=== PATIENT | female | born 1995 | race Caucasian/White ===

== ENCOUNTER 2021-07-29 12:13 | Inpatient (IN) | payer BC ==
[~2021-07-29] VITALS: Ht 149.9 cm; Wt 29.7 kg
[2021-07-29 12:45] LABS: BASO % 0.4 % (0.0-2.0); EOS # 0.2 K/mm3 (0.0-0.7); EOS % 2.9 % (0-4.0); GRAN # 6.4 K/mm3 (1.4-6.5); GRAN % 77.7 % (42.2-75.2); HEMOGLOBIN 8.7 g/dl (12.5-16.0); LYMPH # 1.1 K/mm3 (1.2-3.4); LYMPH % 13.4 % (20.0-51.0); MEAN CELL VOLUME 96 fl (80.0-100.0); MEAN CORPUSCULAR HEMOGLOBIN 29 pg (27.0-31.0); MEAN CORPUSCULAR HGB CONC 30 g/dl (33.0-37.0); MEAN PLATELET VOLUME 9.6 fl (7.4-10.4); MONO # 0.4 K/mm3 (0.1-0.6); MONO % 5.1 % (1.7-9.3); PLATELET COUNT 373 K/mm3 (130-400); RED BLOOD COUNT 3.01 M/mm3 (4.10-5.30); REDCELL DISTRIBUTION WIDTH-CV 16.9 % (11.5-14.5)
[2021-07-29 13:06] LABS: ALANINE AMINOTRANSFERASE 21 U/L (0-55); ALBUMIN 4.2 gm/dL (3.5-5.0); ALKALINE PHOSPHATASE 68 U/L (40-150); ANION GAP 13 mmol/L (7-16); AST,SGOT 14 U/L (5-34); BILIRUBIN,TOTAL 0.2 mg/dL (0.2-1.2); BLOOD UREA NITROGEN 22 mg/dL (7-19); CALCIUM 9.9 mg/dL (8.4-10.2); CHLORIDE 119 mmol/L (98-107); CREATININE, serum 1.94 mg/dL (0.57-1.11); GLUCOSE 77 mg/dL (70-99); POTASSIUM 3.5 mmol/L (3.5-4.5); SODIUM 141 mmol/L (136-145); TOTAL PROTEIN 8.1 gm/dL (6.2-8.1)
[2021-07-29 13:07] LABS: CARBON DIOXIDE 9 mmol/L (22-29)
[2021-07-29 13:14] LABS: HCG,QUANTITATIVE < 1 mIU/mL
[2021-07-29] MEDS ORDERED: CELLCEPT 250MG250 MG PO (17:40)
[2021-07-29] MEDS ORDERED: PROGRAF 1MG1 MG PO (17:42)
[2021-07-29] MEDS ORDERED: LO LOESTRIN FE1 TAB PO (17:43)
[2021-07-29] MEDS ORDERED: MACRODANTIN50 MG/CA1 PO (17:46)
[2021-07-29] MEDS ORDERED: SEPTRA 400 MG-1 TAB PO (17:49)
[2021-07-29] MEDS ORDERED: [UNRECOGNIZED DRUG - OTHER] (17:50)
--- NOTE | 2021-07-29 20:00 | NUR ---
Assessment complete. Patient alert and oriented with no complaints of pain. Fluids infusing into right a/c. Urostomy draining yellow, slightly cloudy urine. Pt appears emotional after her fiance has left but is consolable. No further concerns; call light in reach.
[2021-07-29 20:11] VITALS: BP 122/74; PULSE 100; TEMP 98.3
[2021-07-30] VITALS (10 sets, daily range): BP systolic 114–130; BP diastolic 32–88; PULSE 79–113; TEMP 98–99.1
[2021-07-30 06:49] LABS: MEAN CELL VOLUME 94 fl (80.0-100.0); MEAN CORPUSCULAR HGB CONC 31 g/dl (33.0-37.0); MEAN PLATELET VOLUME 9.9 fl (7.4-10.4); PLATELET COUNT 296 K/mm3 (130-400); REDCELL DISTRIBUTION WIDTH-CV 16.8 % (11.5-14.5)
[2021-07-30 06:59] LABS: CALCIUM 8.5 mg/dL (8.4-10.2); CREATININE, serum 1.59 mg/dL (0.57-1.11); POTASSIUM 3.8 mmol/L (3.5-4.5)
[2021-07-30 07:00] LABS: HEMATOCRIT 21.5 % (37.0-47.0); HEMOGLOBIN 6.6 g/dl (12.5-16.0); MEAN CORPUSCULAR HEMOGLOBIN 29 pg (27.0-31.0)
[2021-07-30 14:37] LABS: PROGRAF 5.8 ng/mL (5.0-15.0)
[2021-07-30 17:16] LABS: HEMATOCRIT 33.1 % (37.0-47.0); HEMOGLOBIN 10.5 g/dl (12.5-16.0)
--- NOTE | 2021-07-30 19:10 | NUR ---
PT HAD UNEVENTFUL DAY. BLOOD ADMINISTRATION COMPLETED. RESULTED HGB OF 10.5. PT DENIES ANY OTHER CONCERNS. PT IS INCONTINENT OF STOOL, AND HAS CALLED WHEN SHE NOTICES THE SMELL. REPORT GIVEN TO [facility].
--- NOTE | 2021-07-30 21:30 | NUR ---
ALERT AND OX4. DENIES SOA, CHEST PAIN OR DIZZY. GOOD APPETITE. FIANCE AT BEDSIDE UNTIL VISITOR HOURS OVER. INC ON STOOL BRIEF CHANGED. PM MEDS GIVEN. POSSIBLE DC TOMORROW. POC DISCUSSED. CALL LIGHT WI REACH.
[2021-07-31 00:55] VITALS: BP 113/75; PULSE 89; TEMP 98.2
[2021-07-31 05:20] VITALS: BP 119/72; PULSE 80; TEMP 97.6
--- NOTE | 2021-07-31 05:31 | NUR ---
RESTED THROUGH THE NIGHT WITHOUT INCIDENT. NEEDS MET. ZELALEM RACHEL TODAY.
[2021-07-31 06:59] LABS: BASO % 0.3 % (0.0-2.0); EOS # 0.3 K/mm3 (0.0-0.7); EOS % 4.4 % (0-4.0); GRAN # 4.3 K/mm3 (1.4-6.5); GRAN % 65.1 % (42.2-75.2); LYMPH # 1.5 K/mm3 (1.2-3.4); LYMPH % 23.1 % (20.0-51.0); MEAN CORPUSCULAR HGB CONC 33 g/dl (33.0-37.0); MEAN PLATELET VOLUME 9.4 fl (7.4-10.4); MONO # 0.5 K/mm3 (0.1-0.6); MONO % 6.8 % (1.7-9.3); PLATELET COUNT 270 K/mm3 (130-400); RED BLOOD COUNT 3.14 M/mm3 (4.10-5.30); REDCELL DISTRIBUTION WIDTH-CV 16.9 % (11.5-14.5)
[2021-07-31 07:01] LABS: HEMOGLOBIN 8.8 g/dl (12.5-16.0); MEAN CELL VOLUME 86 fl (80.0-100.0); MEAN CORPUSCULAR HEMOGLOBIN 28 pg (27.0-31.0)
--- NOTE | 2021-07-31 07:06 | NUR ---
REPORT RECIEVED FROM [facility]. PT SLEEPING IN BED. NO COMPLAINTS OF PAIN OR DYSPNEA. NO SIGNS OF DISTRESS. CALL LIGHT WITHIN REACH
[2021-07-31 07:22] LABS: CALCIUM 8.1 mg/dL (8.4-10.2); CREATININE, serum 1.37 mg/dL (0.57-1.11); MAGNESIUM 1.5 mg/dL (1.6-2.6); POTASSIUM 3.6 mmol/L (3.5-4.5)
[2021-07-31 08:09] VITALS: BP 120/70; PULSE 85; TEMP 97.7
[2021-07-31] MEDS ORDERED: SODIUM BICARBO650 MG PO (08:40)
--- NOTE | 2021-07-31 09:15 | NUR ---
PT ASSESSED. NO COMPLAINTS OF PAIN OR DYSPNEA. NO SIGNS OF DISTRESS NOTED. CALL LIGHT WITHIN REACH
--- NOTE | 2021-07-31 09:43 | NUR ---
Wood Milling Machine Operator met with patient to discuss discharge planning. Patient is from [place], [place] and advised that she is here visiting her fianceRomain (ph#[phone]) who is in the [employer] and lives [address] [facility] [facility] [address]. Patient reports she is here for two weeks visiting and ended up in the hospital. Patient sees a Dr. Antonio Thomas for primary care in [place] but states she only sees him as needed. Patient reports she does not have any issues obtaining needed medications. Patient is discharging today and reports her fiance will be here to pick her up soon.
--- NOTE | 2021-07-31 11:47 | NUR ---
DISCHARGE TEACHING COMPLETE. ALL QUESTIONS ANSWERED. MEDICATIONS EXPLAINED. IV REMOVED.
== END 2021-07-31 12:07 | disposition home or self-care (01) | DRG 683 ==
LOC: COL.ER 12:13 → MEDICAL 15:47
PROVIDERS: Internal Medicine; Nurse Practitioner; Physician Assistant; ADMIT Internal Medicine
DX: N17.9 Acute kidney failure, unspecified (principal); Z94.0 Kidney transplant status; E87.2 Acidosis; R19.7 Diarrhea, unspecified; N92.6 Irregular menstruation, unspecified; Q05.9 Spina bifida, unspecified; M41.9 Scoliosis, unspecified; D53.9 Nutritional anemia, unspecified; Z20.822 Contact with and (suspected) exposure to COVID-19
CPT/HCPCS: OP; 99232-AI; 99239; G0378; J7030; J7120; J7507; J7517; P9016